=== PATIENT | female | born 1960 | race Caucasian/White ===

== ENCOUNTER 2023-09-14 08:14 | Emergency (ER) | payer OTHER, SELFPAY ==
[2023-09-14 08:19] VITALS: BP 139/95
--- NOTE | 2023-09-14 08:42 | ED.GENMED ---
History of Present Illness
General
Chief Complaint: Headache
Time Seen by Provider: 09/14/23 08:42
History of Present Illness
History of Present Illness:
HPI: The patient presents with headaches for the last 2 weeks. This is associated with some discomfort in her throat, cough, myalgias, and a general unwell feeling. She has loss of appetite and reports nausea only when she eats. She is not
currently nauseated. She has had no fevers. She states she is taken for COVID test all of which were negative but knows that several people that she is exposed to has COVID. She states that she had hyponatremia in the past and had recent blood
work that was done within the week with a sodium of 129.
EXAM:
GENERAL: Well appearing in no distress
HEENT: Moist oral mucosa
CARDIOVASCULAR: No murmurs, normal heart rate, regular rhythm, No chest wall tenderness
PULMONARY: No respiratory distress, breath sounds are clear and equal
ABDOMEN: Soft with no peritoneal signs, no tenderness
NEUROLOGIC: Excellent strength all extremities, no coordination deficits
PSYCHIATRIC: Appropriate mental status, normal insight and judgement
EXTREMITIES: Nontender, no edema, moves all extremities equally
SKIN: No rash, no lesions
TIME OF INITIAL ENCOUNTER: 8:45 AM
NUMBER AND COMPLEXITY OF PROBLEMS ADDRESSED AT THE ENCOUNTER
� Chronic conditions affecting care: The patient has been hyponatremic in the past
� Acute Exacerbation and/or Progression of Chronic Illness: This is an acute problem
� Differential Diagnosis includes: Viral syndrome, vaccination reaction, pneumonia
AMOUNT AND/OR COMPLEXITY OF DATA TO BE REVIEWED AND ANALYZED
� I performed an independent evaluation of and my interpretation is:
EKG:
CT:
X-rays: X-ray shows no acute abnormality.
Laboratory Studies: White count 8.2, hemoglobin 12.9, sodium 131, other basic labs unremarkable, COVID and flu negative
Other:
� Review of other/old records: I reviewed records. Sodium in 2020 ranged from 128-133.
� Clinical information was obtained by an independent historian: None needed
� Prescriptions/Medications Considered but not given:
� Further testing considered but not performed:
RISK OF COMPLICATIONS AND/OR MORBIDITY OR MORTALITY OF PATIENT MANAGEMENT
� Social determinants of health affecting care: Lives at home
� Discussion with other providers: None needed
� Escalation of care including admission/observation vs risk of discharge considered: Unremarkable workup. Suspect more of a viral syndrome. She was given a DuoNeb we also tried Toradol/Tylenol. She was given IV fluids.
Past History
Past History
ED Past Medical History: Hypothyroidism and Psychiatric
ED Past Surgical History: Orthopedic
Social History
Tobacco: Non-smoker
Alcohol: Occasional
Drug: None
Personal:
Living: other (with partner)
Employment: Retired
Family History
Family History: Other
Phy Exam
Physical Exam
Physical Exam:
See HPI
Course
Orders/Labs/Results
Orders:
Orders
09/14/23 08:47
0.9% Sodium Chloride 1000 ml [Nss] 1,000 ml IV BOLUS
Ipratropium/Albuterol Sulfate [Duoneb] 3 ml INH R NOW ONE
09/14/23 08:54
CR Chest - 2 Views Urgent
Comment:
Reason For Exam: cough
09/14/23 09:04
Basic Metabolic Panel Urgent
COVID-19 Antigen Urgent
Source: Nasal Swab
LFT [Pugac-[id number]] Urgent
Influenza A+B Rapid Molecular Urgent
ANGEL Source: Nasal Swab
Specimen Description:
09/14/23 09:05
Complete Blood Count/With Diff Urgent
09/14/23 12:25
Acetaminophen [Tylenol] 1,000 mg PO NOW STA
Ketorolac [Toradol] 15 mg IV NOW STA
Abnormal Lab Results
09/14/23 09/14/23
09:04 09:05
RBC 4.15 L 10^6/uL
(4.20-5.40)
Hct 36.9 L %
(37.0-47.0)
MCH 31.1 H pg
(27.0-31.0)
Plt Count 405 H 10^3/uL
(130-400)
Absolute Monos (auto) 0.8 H 10^3/uL
(0.1-0.6)
Sodium 131 L mmol/L
(135-145)
Chloride 96 L mmol/L
(98-107)
09/14/23 09:05
09/14/23 09:04
Vital Signs
Initial and Last Documented VS:
Initial Vital Signs
Temp Pulse Resp BP Pulse Ox
98.8 F 86 20 139/95 97
09/14/23 08:19 09/14/23 08:19 09/14/23 08:19 09/14/23 08:19 09/14/23 08:19
Last Documented Vital Signs
Temp Pulse Resp BP Pulse Ox
98.2 F 78 17 139/83 96
09/14/23 09:01 09/14/23 11:30 09/14/23 11:30 09/14/23 11:20 09/14/23 11:30
*Critical Care Note
Total Time (30-74mins, 75-104mins- exclusive of procedures): Not Applicable
ED Attending Note
-
Portions of this chart may have been created with voice recognition software.� Occasional wrong word or��sound alike� substitutions may have occurred due to the inherent limitations of voice recognition software.
Discharge Plan
Departure
Patient Disposition: Home (Routine Discharge)
Date of Disposition: 09/14/23
Time of Disposition: 12:45
Patient with high blood pressure during this ER visit?: Yes
Discharge Problem:
Acute viral syndrome
Instructions: Cough, Adult ED, BLOOD PRESSURE
Prescriptions:
No Action
levothyroxine 112 MCG tablet
112 mcg PO DAILY@0700
clobetasol-emollient 15 GM cream
15 gm topical DAILY
hydrocortisone 1 APPLIC ointment
1 applic topical PRN PRN (Reason: psoriasis)
melatonin 10 MG capsule
3 mg PO HS
albuterol sulfate 1 PUFF HFA aerosol inhaler
1 puff inhalation PRN PRN (Reason: asthma)
cannabidiol [Epidiolex] 1 UNIT solution
1 unit PO DAILYPRN PRN (Reason: Nerve Pain)
Patient Comments:
Usually 4x month
cyclobenzaprine 10 MG tablet
10 mg PO BID PRN (Reason: spasm/sleep) Qty: 10 0RF
sennosides [senna] 1 TABLET tablet
2 tab PO BID 0RF
hydrocodone-acetaminophen 1 TABLET tablet
1 tab PO Q6HPRN PRN (Reason: moderate-severe pain) Qty: 30 0RF
Rx Instructions:
1 tba moderate pain or 2 if pain severe
Dx lami-fusion
onoging therapy
docusate sodium 100 MG capsule
100 mg PO BID 0RF
lidocaine HCl [Lidocaine Viscous] 90 ML solution
5 ml PO QID PRN (Reason: sore throat) Qty: 1 0RF
Rx Instructions:
swish-gargle and swallow
Referrals:
Kristie Rivera MD [Family Provider] -
Activity Restrictions/Additional Instructions:
The chest x-ray shows no abnormality. Sodium is 131, white blood cell count is normal. Other basic labs normal. COVID and flu testing are negative. Return here if worse.
Interventions
Interventions:
*Risk Screen - Suicide Last Done: 09/14/23 08:19
*General Assessment Last Done: 09/14/23 08:50
*Neglect/Abuse Screening Last Done: 09/14/23 08:19
*ED COVID-19 Vaccine History Last Done: 09/14/23 08:19
ED- Neurological Assessment Last Done: 09/14/23 08:50
Discharge Date and Time
Print Language: ESTONIAN
[2023-09-14 08:50] VITALS: BMI 26.4
[2023-09-14 09:00] VITALS: BP 147/86
[2023-09-14] MEDS: NSS 1000 IV (09:05)
[2023-09-14] MEDS: DUONEB 3 ML INH (09:06)
[2023-09-14 09:13] LABS: % Basophils 0.9 % (0-2); % Eosinophils 4.2 % (0-6); % Immature Granulocytes 0.4 % (0-0.5); % Lymphocytes 21.4 % (20.5-51.1); % Monocytes 9.2 % (1.7-9.3); % Neutrophils 63.9 % (42.2-75.2); Absolute Basophils 0.1 10^3/uL (0-0.2); Absolute Eosinophils 0.3 10^3/uL (0-0.7); Absolute Lymphocytes 1.8 10^3/uL (1.2-3.4); Absolute Monocytes 0.8 10^3/uL (0.1-0.6); Absolute Neutrophils 5.2 10^3/uL (1.4-6.5); Hematocrit 36.9 % (37.0-47.0); Hemoglobin 12.9 g/dL (12.0-16.0); Mean Corpuscular Hgb 31.1 pg (27.0-31.0); Mean Corpuscular Volume 88.9 fL (81.0-99.0); Mean Platelet Volume 7.4 fL (7.4-10.4); Nucleated Red Blood Cells % 0 %; Platelet Count 405 10^3/uL (130-400); Red Blood Cell Count 4.15 10^6/uL (4.20-5.40); Red Cell Dist. Width 11.7 % (11.5-14.5); White Blood Cell Count 8.2 10^3/uL (4.8-10.8)
[2023-09-14 09:20] LABS: COVID-19 Antigen Negative (Negative)
[2023-09-14 09:26] LABS: ALT (SGPT) 19 U/L (0-35); AST (SGOT) 28 U/L (14-36); Albumin 4.4 g/dl (3.5-5.0); Alkaline Phosphatase 103 U/L (38-126); Blood Urea Nitrogen 10 mg/dl (7-17); Calcium 9.8 mg/dl (8.4-10.2); Carbon Dioxide 26 mmol/L (22-30); Chloride 96 mmol/L (98-107); Direct Bilirubin 0.1 mg/dl (0.0-0.4); Estimated Creatinine Clearance 83 ml/min; Glucose 93 mg/dl (70-99); Potassium 4.3 mmol/L (3.5-5.1); Sodium 131 mmol/L (135-145); Total Bilirubin 0.5 mg/dl (0.2-1.3); Total Protein 7.5 g/dl (6.3-8.2); eGFR > 60.00
[2023-09-14 10:13] VITALS: BP 143/83
[2023-09-14 11:20] VITALS: BP 139/83
[2023-09-14 12:00] VITALS: BP 130/84
[2023-09-14] MEDS: TYLENOL 1000 MG PO (13:01)
[2023-09-14] MEDS: TORADOL 15 MG IV (13:01)
== END 2023-09-14 13:07 | disposition home or self-care (01) ==
LOC: EMR 08:14
PROVIDERS: EMERGENCY PHYSICIAN Emergency Medicine; FAMILY PHYSICIAN Family Medicine
DX: B34.9 Viral infection, unspecified (principal); R03.0 Elevated blood-pressure reading, without diagnosis of hypertension; Z11.52 Encounter for screening for COVID-19
CPT/HCPCS: 99284; 96374; 94640; 96361; 71046; 80048; 80076; 85025; 87502; 87811

== ENCOUNTER 2024-07-31 05:10 | Emergency (ER) | payer OTHER, SELFPAY ==
[2024-07-31] VITALS (7 sets, daily range): BP systolic 137–163; BP diastolic 75–96; BMI 28.0
--- NOTE | 2024-07-31 06:51 | ED.GENMED ---
History of Present Illness
General
Chief Complaint: Anxiety
Source: patient
Exam Limitations: none
Time Seen by Provider: 07/31/24 06:08
Nursing documentation reviewed up to this point in time: agreed with
History of Present Illness
History of Present Illness:
Patient is a 63-year-old female with past medical history of chronic back pain fusion to cervical spine and anxiety. She presents to the ER for acute anxiety and suicidal thoughts. She reports in 2020 when she had a spinal fusion she was very
anxious and required lorazepam at that time. In addition she was on Lexapro but her sodium dropped and she needed to have that medicine stopped. Recently however for the past several months intermittently she has felt very anxious. She is not
medicine for this currently and has not been evaluated for this.
Past History
Past History
ED Past Medical History: Hypothyroidism and Psychiatric
ED Past Surgical History: Orthopedic
Social History
Tobacco: Non-smoker
Alcohol: Occasional
Drug: None
Personal:
Living: other (with partner)
Employment: Retired
Family History
Family History: Other
Review of Systems
Review of Systems
Allergies reviewed?: Yes
All Other Systems: ROS reviewed and negative except as documented in HPI and ROS
Constitutional: Reports no symptoms; Denies fever, fatigue or chills
Respiratory: Reports no symptoms
ABD/GI: Reports no symptoms
: Reports no symptoms
Musculoskeletal: Reports no symptoms
Skin: Reports no symptoms
Neurological: Reports no symptoms
Psychiatric: Reports anxiety and suicidal ([place] suicidal at the time denies now.)
Phy Exam
General Physical Exam
General Presentation: no apparent distress
General age: appears stated age
General Skin: warm and dry
General Habitus: normal
General Mental: alert
General Hydration: appears well hydrated
Cardiovascular Exam
Cardiovascular Exam: regular rate/rhythm, no murmur and normal peripheral pulses
Pulmonary Exam
Pulmonary Exam: lungs clear and no respiratory distress
Neurological Exam
Neurological Exam: alert and oriented x3
Musculoskeletal Exam
Musculoskeletal Exam: full ROM
Skin Exam
Skin Exam: normal color and warm/dry
Psychiatric Exam
Psychiatric Exam: normal mood/affect
Course
Orders/Labs/Results
Orders:
Orders
07/31/24 06:48
Lorazepam [Ativan] 0.5 mg PO NOW STA
07/31/24 06:49
Crisis Consult Urgent
Reason for Consult: anxiety suicidal thoughts
Comment: anxiety suicidal thoughts
Vital Signs
Initial and Last Documented VS:
Initial Vital Signs
Temp Pulse Resp BP Pulse Ox
97.6 F 71 16 142/75 97
07/31/24 05:13 07/31/24 05:13 07/31/24 05:13 07/31/24 05:13 07/31/24 05:13
Last Documented Vital Signs
Temp Pulse Resp BP Pulse Ox
98.3 F 82 20 163/96 99
07/31/24 05:54 07/31/24 08:51 07/31/24 08:51 07/31/24 08:51 07/31/24 08:51
MDM/Problems Addressed
Differential Diagnosis Includes:
not limited to: anxiety suicidal thoughts
MDM/Problems Addressed:
As documented patient is a 63-year-old female who has a history anxiety and presented with increasing anxiety over the past several months. In the past patient was on Lexapro but had to stop it because of low sodium. Patient always felt what she
describes suicidal because she felt so anxious. She presented here awake alert no. She has never had any suicidal thoughts in the past but because of anxiety was concerned because she had these feelings. She was eval by crisis. She is awake
alert she is cooperative. She was given 1 dose of oral Ativan here in the ER and is feeling much better. She does have an outpatient psychologist whom she has seen in the past I can make an appointment with. She currently does not feel suicidal
because she does have a plan to act to make her feel better and help her with her symptoms. She has an appointment with her family doctor at 1030 this morning. Her partner will pick her up. She was given outpatient resources by crisis and felt to
be stable for discharge home. And again as documented because she has a plan intact to improve her symptoms she is not suicidal.
Chronic conditions affecting care:
anxiety
*Critical Care Note
Total Time (30-74mins, 75-104mins- exclusive of procedures): Not Applicable
ED Attending Note
-
Portions of this chart may have been created with voice recognition software.� Occasional wrong word or��sound alike� substitutions may have occurred due to the inherent limitations of voice recognition software.
Discharge Plan
Departure
Patient Disposition: Home (Routine Discharge)
Date of Disposition: 07/31/24
Time of Disposition: 08:40
Patient with high blood pressure during this ER visit?: Yes
Condition: Fair
Covid-19: Not Applicable
Discharge Problem:
Anxiety
Instructions: Anxiety, Adult (DC), BLOOD PRESSURE
Prescriptions:
No Action
levothyroxine 112 MCG tablet
112 mcg PO DAILY@0700
clobetasol-emollient 15 GM cream
15 gm topical DAILY
hydrocortisone 1 APPLIC ointment
1 applic topical PRN PRN (Reason: psoriasis)
melatonin 10 MG capsule
3 mg PO HS
albuterol sulfate 1 PUFF HFA aerosol inhaler
1 puff inhalation PRN PRN (Reason: asthma)
cannabidiol [Epidiolex] 1 UNIT solution
1 unit PO DAILYPRN PRN (Reason: Nerve Pain)
Patient Comments:
Usually 4x month
cyclobenzaprine 10 MG tablet
10 mg PO BID PRN (Reason: spasm/sleep) Qty: 10 0RF
sennosides [senna] 1 TABLET tablet
2 tab PO BID 0RF
hydrocodone-acetaminophen 1 TABLET tablet
1 tab PO Q6HPRN PRN (Reason: moderate-severe pain) Qty: 30 0RF
Rx Instructions:
1 tba moderate pain or 2 if pain severe
Dx lami-fusion
onoging therapy
docusate sodium 100 MG capsule
100 mg PO BID 0RF
lidocaine HCl [Lidocaine Viscous] 90 ML solution
5 ml PO QID PRN (Reason: sore throat) Qty: 1 0RF
Rx Instructions:
swish-gargle and swallow
Referrals:
Kristie Rivera MD [Family Provider, Family Practice]
Activity Restrictions/Additional Instructions:
Follow-up with your family doctor as scheduled this morning. Please discuss antidepression/antianxiety medication. You were provided resources from crisis please follow-up with your outpatient psychologist as well as resources. Return if any
worsening of symptoms including any suicidal thoughts
Interventions
Interventions:
*Risk Screen - Suicide Last Done: 07/31/24 05:13
*General Assessment Last Done: 07/31/24 07:41
*Neglect/Abuse Screening Last Done: 07/31/24 07:41
*ED- Fall Risk Assessment Last Done: 07/31/24 07:41
*ED COVID-19 Vaccine History Last Done: 07/31/24 07:41
*Nursing Disposition Last Done: 07/31/24 08:51
ED-Psychological Assessment Last Done: 07/31/24 05:54
Discharge Date and Time
Discharge Date/Time: 07/31/24 08:52
Print Language: [id number]
[2024-07-31] MEDS: ATIVAN 0.5 MG PO (07:41)
== END 2024-07-31 08:52 | disposition home or self-care (01) ==
LOC: EMR 05:10
PROVIDERS: EMERGENCY PHYSICIAN Student in an Organized Health Care Education/Training Program; FAMILY PHYSICIAN Family Medicine
DX: F41.9 Anxiety disorder, unspecified (principal); R03.0 Elevated blood-pressure reading, without diagnosis of hypertension
CPT/HCPCS: 99283

== ENCOUNTER 2024-10-14 12:06 | Outpatient (RCR) | payer OTHER, SELFPAY | END 2024-10-14 23:59 | disposition home or self-care (01) | LOC: RPT 12:06 | PROVIDERS: ATTENDING PHYSICIAN Specialist; FAMILY PHYSICIAN Family Medicine | DX: M70.62 Trochanteric bursitis, left hip (principal); Z73.6 Limitation of activities due to disability; M62.81 Muscle weakness (generalized) | CPT/HCPCS: 97110; 97112; 97162 ==

== ENCOUNTER 2024-11-18 12:11 | Outpatient (RCR) | payer OTHER, SELFPAY | END 2024-11-18 13:00 | disposition home or self-care (01) | LOC: RPT 12:11 | PROVIDERS: ATTENDING PHYSICIAN Specialist; FAMILY PHYSICIAN Family Medicine | DX: M70.62 Trochanteric bursitis, left hip (principal); Z73.6 Limitation of activities due to disability; M62.81 Muscle weakness (generalized) | CPT/HCPCS: 97110; 97112; 97530 ==